=== PATIENT | female | born 1970 | race Caucasian/White ===

== ENCOUNTER 2021-02-07 21:01 | Emergency (ER) | payer MEDICARE, OTHER | END 2021-02-08 01:30 | disposition home or self-care (01) | LOC: ER1 21:01 | DX: S90.31XA Contusion of right foot, initial encounter (principal); I10 Essential (primary) hypertension; W22.8XXA Striking against or struck by other objects, initial encounter; Z88.5 Allergy status to narcotic agent; Z88.0 Allergy status to penicillin | CPT/HCPCS: 73630; 99283 ==

== ENCOUNTER → 2021-02-07 | Outpatient (CLI) | payer MEDICARE, OTHER ==
[~2021-02-07] MED LIST: ALBUTEROL2.5 MG/3 M INH; ASPIRIN CHEWABL81 MG PO; B-125000 MC2 PO; CLARITIN10 MG PO; COLACE 100MG C100 MG PO; GABAPENTIN600 MG PO; IBUPROFEN600 MG PO; IBUPROFEN800 MG PO; KEFLEX CAP 500500 MG PO; LASIX20 MG PO; LEVOTHYROXINE137 MCG PO; LODINE CAP 300300 MG PO; LORTAB 7.5-3251 EACH PO; MACROBID 100 M100 MG PO; NEURONTIN 300300 MG PO; NORCO 5-325 TA1 EACH PO; NORVASC 5 MG TAB5 MG PO; OMNICEF 300 MG300 MG PO; PHENERGAN 25 MG25 M1 PO; PRINIVIL10 MG PO; SYNTHROID125 MCG PO; TOPAMAX25 MG PO; TOPROL XL50 MG PO; TORADOL 10 MG T10 MG PO; VALIUM 5 MG TAB5 MG PO; VENTOLIN/PROVE0.5 ML INH; ZOFRAN4 MG PO
== END ==
LOC: LAB 09:12
DX: D35.00 Benign neoplasm of unspecified adrenal gland (principal)
CPT/HCPCS: 36415; 82533

== ENCOUNTER 2021-03-31 09:05 | Emergency (ER) | payer OTHER, MEDICARE ==
[2021-03-31] MEDS ORDERED: CYCLOBENZAPRINE10 MG PO (09:54)
[2021-03-31] MEDS ORDERED: IBUPROFEN800 MG PO (09:54)
== END 2021-03-31 11:10 | disposition home or self-care (01) ==
LOC: ER1 09:05
DX: S16.1XXA Strain of muscle, fascia and tendon at neck level, initial encounter (principal); S29.012A Strain of muscle and tendon of back wall of thorax, initial encounter; V49.40XA Driver injured in collision with unspecified motor vehicles in traffic accident, initial encounter; Y92.410 Unspecified street and highway as the place of occurrence of the external cause; Y99.9 Unspecified external cause status
CPT/HCPCS: 71045; 72125; 72128; 72170; 96372; 99284; J1885

== ENCOUNTER → 2021-08-10 | Outpatient (CLI) | payer MEDICARE ==
[~2021-08-10] MED LIST changes: +CYCLOBENZAPRINE10 MG PO
== END ==
LOC: HEART 5 14:32
DX: R06.02 Shortness of breath (principal)
CPT/HCPCS: 71046; 94010

== ENCOUNTER 2022-02-27 21:47 | Emergency (ER) | payer MEDICARE, OTHER | END 2022-02-28 03:03 | disposition home or self-care (01) | LOC: ER1 21:47 | DX: S52.135A Nondisplaced fracture of neck of left radius, initial encounter for closed fracture (principal); S46.912A Strain of unspecified muscle, fascia and tendon at shoulder and upper arm level, left arm, initial encounter; S29.011A Strain of muscle and tendon of front wall of thorax, initial encounter; S80.11XA Contusion of right lower leg, initial encounter; S70.12XA Contusion of left thigh, initial encounter; I10 Essential (primary) hypertension; W01.0XXA Fall on same level from slipping, tripping and stumbling without subsequent striking against object, initial encounter | CPT/HCPCS: 71111; 73030; 73060; 73090; 73552; 73590; 99283 ==

== ENCOUNTER → 2022-03-15 | Outpatient (CLI) | payer MEDICARE, OTHER | LOC: EXRD 14:53 | DX: Z13.820 Encounter for screening for osteoporosis (principal); Z78.0 Asymptomatic menopausal state; M85.88 Other specified disorders of bone density and structure, other site; M85.852 Other specified disorders of bone density and structure, left thigh | CPT/HCPCS: 77080 ==

== ENCOUNTER → 2022-05-12 | Outpatient (CLI) | payer MEDICARE, OTHER | LOC: SLEEP 09:03 | DX: G47.33 Obstructive sleep apnea (adult) (pediatric) (principal) | CPT/HCPCS: 95810 ==